=== PATIENT | female | born 1975 | race Caucasian/White ===

== ENCOUNTER 2017-03-10 08:04 | Emergency (ER) | payer OTHER ==
[2017-03-10 08:47] LABS: APPEARANCE SLT CLOUDY (CLEAR); BACTERIA FEW /hpf (NONE SEEN); BILIRUBIN NEGATIVE (NEGATIVE); COLOR YELLOW (YELLOW); EPITHELIAL CELLS 0-5 /hpf (0-5); GLUCOSE NEGATIVE (NEGATIVE); KETONE NEGATIVE (NEGATIVE); LEUKOCYTE ESTERASE 2+ (NEGATIVE); MUCUS <1+ /lpf (NONE SEEN); NITRITE NEGATIVE (NEGATIVE); PROTEIN NEGATIVE (NEGATIVE); UROBILINOGEN NORMAL (NORMAL)
== END 2017-03-10 09:10 | disposition home or self-care (01) ==
LOC: D.ER 08:04
PROVIDERS: Emergency Medicine
DX: M54.9 Dorsalgia, unspecified (principal); J45.909 Unspecified asthma, uncomplicated; F17.200 Nicotine dependence, unspecified, uncomplicated

== ENCOUNTER 2020-04-21 08:00 | Day surgery (SDC) | payer OTHER ==
[2020-04-19 17:15] LABS: HEMATOCRIT 40.1 % (36.0-48.0); HEMOGLOBIN 13.7 g/dL (12-16); MCH 32.1 pg (26.0-34.0); MCHC 34.2 g/dL (31.0-37.0); MCV 93.9 fL (80.0-100.0); MEAN PLATELET VOLUME 9.2 fL (7.4-10.4); RBC 4.27 10x6/uL (4.00-5.40); RDW 12.4 % (11.5-14.5)
[~2020-04-21] VITALS: Ht 162.6 cm; Wt 92.5 kg
[~2020-04-21 08:00] MED LIST: LUNESTA2 M1 PO; PERCOCET 10-321 EAC1 PO; PROAIR HFA8.5 G1 INH; XANAX1 MG PO; ZANAFLEX4 MG PO
[2020-04-21 10:48] VITALS: BP 151/85; Ht 162.6 cm; Wt 92.5 kg
[2020-04-21] MEDS ORDERED: DILAUDID4 MG PO (11:58)
[2020-04-21] MEDS ORDERED: VISTARIL50 MG PO (11:58)
--- NOTE | 2020-04-21 12:03 | NUR ---
PT REFUSED INTIAL ASSESSMENT STATING SHE WAS NOT SUCIDIAL THAT SHE WAS SEEING SOMEONE SINCE THE INCIDENT AND THAT SHE DIDNT WANT TO WASTE TIME THAT NURSE COULD BE SPENDING WITH ANOTHER PT." SHE HAD A LIFETIME EVENT AND WAS NOT SI.
--- NOTE | 2020-04-21 14:10 | NUR ---
1400 MEDICATED FOR ITCHING TO NOSE AND IV REMOVED
--- NOTE | 2020-04-21 14:40 | NUR ---
1415 DISCHARGE INSTRUCTIONS GIVEN AND PT VERBALIZED AN UNDERSTANDING. DISCHARGE TO HOME IN STABLE CONDITION AND WITHOUT C/O
--- NOTE | 2020-04-22 09:21 | OP ---
PATIENT NAME: ROSALIE CASTANEDA MEDICAL RECORD: [id number] :75 LOCATION:[facility] ADMISSION DATE: SURGEON: DIPAK RODRIGUEZ DO DATE OF OPERATION: 04/21/2020 PROCEDURE PERFORMED: Removal of hardware, left ankle. 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 INDICATIONS: Ms. Castaneda is a 45-year-old female who has had a left ankle hardware in for quite some time, years in fact, and she got to a point where it is bothering her and very prominent on the skin and she wanted it removed. I informed her of the risks of this including fracture, infection, bleeding, damage to nerves and vessel in the area, continued pain, and need for further surgery. She signed the consent. SURGEON: Dipak Rodriguez DO DESCRIPTION OF PROCEDURE: The patient was taken to operative suite, laid in supine position, given general anesthetic. After given a block by anesthesia in the preoperative area, given 900 mg of clindamycin preoperatively and the patient was sedated and LMA was placed. The left lower extremity was then prepped and draped in sterile fashion. Timeout was performed, everyone was in agreeance with the correct side, site, patient, and the procedure. I then began by making an incision over the prior incision right down to the plate and remove the screws and the plate and then curetted out the holes. This was then irrigated and closed with 2-0 Vicryl in inverted interrupted fashion and Prineo glue placed on it. She was then dressed with Adaptic, 4 x 4s, ABD, cast padding and Deshawn and then placed in a boot. She was awakened and taken to recovery in stable condition. BLOOD LOSS: Minimal. COMPLICATIONS: None. 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
== END 2020-04-21 14:30 | disposition home or self-care (01) ==
LOC: D.OPS 08:00
PROVIDERS: Anesthesiology; ATTEND Orthopaedic Surgery
DX: Z97.8 Presence of other specified devices (principal); M25.572 Pain in left ankle and joints of left foot; J45.909 Unspecified asthma, uncomplicated; Z72.0 Tobacco use

== ENCOUNTER 2020-11-14 09:15 | Outpatient (CLI) | payer OTHER ==
[2020-04-21 10:48] VITALS: BMI 35.1
[~2020-11-14 09:15] MED LIST changes: +DILAUDID4 MG PO; +VISTARIL50 MG PO
== END 2020-11-14 23:59 | disposition home or self-care (01) ==
LOC: D.MAMMO 09:15
PROVIDERS: ATTEND Emergency Medicine
DX: Z12.31 Encounter for screening mammogram for malignant neoplasm of breast (principal)